=== PATIENT | male | born 1970 | race Caucasian/White ===

== ENCOUNTER 2019-08-09 08:32 | Day surgery (SDC) | payer MEDICARE, SELFPAY ==
[2019-08-08 13:16] VITALS: BMI 25.8
--- NOTE | 2019-08-09 09:21 | ANES.PREANES ---
Pre-Anesthetic Assessment Pre-Anesthetic Assessment: Height/Weight: Height 1.7 m Weight 74.843 kg Proposed Procedure: Operation Date: 08/09/19 10:00 Proposed Procedures p Colonoscopy(Not Applicable) - Kingston Lilly MD Social: Social History: Alcohol and Tobacco Exam: Pre-Anes Outpt Exam: alert, oriented x 3, clear to auscultation bilaterally and regular rate & rhythm Airway: Submandibular: WNL Cervical ROM: WNL MP: 1 Dentition: Other (poor) History/ROS: No significant history except as noted Pulmonary: Pulmonary: None reported CV/HEM: CV/HEM: None reported : : None reported Hepatic: Hepatic: None reported GI: GI: GERD and None reported Metabolic: Metabolic: Hyperlipidemia Musc/skel: Musc/skel: None reported Neuropsych: Neuropsych: Anxiety and Bipolar Anesthetic Plan: ASA status: III Anesthesia: Anesthesia Evaluation and MAC Risk of > 500 ml blood loss (7ml/kg in children): No PFSH Anesthesia PFSH: Medical History Bipolar disorder (Acute) Depression (Acute) Dyslipidemia (Acute) GERD (gastroesophageal reflux disease) (Acute) Hx MRSA infection (Acute) Inguinal hernia (Acute) OCD (obsessive compulsive disorder) (Acute) Schizophrenia (Acute) Surgical History Hx of circumcision (Acute) Hx of left inguinal hernia repair (Acute) Hx of vasectomy (Acute) Social History Smoking and tobacco status: former smoker Alcohol intake: current Alcohol intake frequency: few times a month Data Anesthesia Cardiac Studies: No Data to Display
[2019-08-09 09:52] VITALS: BP 108/75; PULSE 64; RESP 18; TEMP 36.6; O2SAT 98
[2019-08-09] MEDS: sodium chloride 0.9% 1,000 ML 30 ML (10:02)
[2019-08-09] MEDS: midazolam 1 mg/mL INJ 2 mL 2 MG (11:00)
[2019-08-09 11:01] VITALS: PULSE 62; O2SAT 98
--- NOTE | 2019-08-09 11:02 | PM.HPUD ---
H&P update H&P Update: DATE OF SURGERY/PROCEDURE: 08/09/19 DATE H&P PERFORMED: 07/11/19 H&P UPDATE INFORMATION: H&P completed within last 30 days and No changes to prior documentation PLANNED PROCEDURE: Operation Date: 08/09/19 10:00 Proposed Procedures p Colonoscopy(Not Applicable) - Kingston Lilly MD Full H&P Perinent History: Medical/Surgical History: Medical History (Updated 08/09/19 @ 09:22 by Kirk Pérez MD) Bipolar disorder (Acute) Depression (Acute) Dyslipidemia (Acute) GERD (gastroesophageal reflux disease) (Acute) Hx MRSA infection (Acute) Inguinal hernia (Acute) OCD (obsessive compulsive disorder) (Acute) Schizophrenia (Acute) Social History: Social History Smoking and tobacco status: former smoker Alcohol intake: current Alcohol intake frequency: few times a month
--- NOTE | 2019-08-09 12:09 | SUR.OPER ---
ink used and a clip placed at bx site in the transverse colon
[2019-08-09 12:24] VITALS: BP 103/71; PULSE 71; RESP 16; TEMP 36.5; O2SAT 100
--- NOTE | 2019-08-09 12:34 | ANE.PACU ---
 Inpatient post-anesthesia follow up: Airway intact: Yes Vital signs: Temperature 97.7 F Pulse Rate [Monito r] 71 Respiratory Rate 16 Blood Pressure [Le ft Arm] 103/71 Pulse Oximetry 100 Oxygen Delivery Me thod Room Air Oxygen Flow Rate Fraction of Inspir ed Oxygen Hydration adequate: Yes Nausea and vomiting: No Pain level: 2 Mental status: Baseline
[2019-08-09 12:40] VITALS: BP 128/83; PULSE 68; RESP 18; O2SAT 100
== END 2019-08-09 12:45 | disposition home or self-care (01) ==
PROVIDERS: Visit Provider Surgery
PROC: 0DJD8ZZ Inspection of Lower Intestinal Tract, Via Natural or Artificial Opening Endoscopic (ICD-10-PCS; CPT 45378; principal; 2019-08-09 10:00)
DX: Z12.11 Encounter for screening for malignant neoplasm of colon (principal); D12.4 Benign neoplasm of descending colon; D12.3 Benign neoplasm of transverse colon; K57.30 Diverticulosis of large intestine without perforation or abscess without bleeding; E78.5 Hyperlipidemia, unspecified; K21.9 Gastro-esophageal reflux disease without esophagitis; Z86.14 Personal history of Methicillin resistant Staphylococcus aureus infection; Z87.891 Personal history of nicotine dependence
CPT/HCPCS: 12345; 45385; 88305; 96365; J2250; J2704; J7030

== ENCOUNTER 2020-09-26 08:07 | Inpatient (IN) | payer MEDICARE, SELFPAY ==
[2020-09-26] VITALS (7 sets, daily range): BP systolic 121–184; BP diastolic 85–96; PULSE 44–106; RESP 16–20; TEMP 36.8–37.4; O2SAT 95–98; BMI 22.7
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
[2020-09-26 08:50] LABS: Basophils % 0.5 %; Eosinophils # 0.2 10^3/uL (0.0-0.8); Eosinophils % 1.9 %; Hematocrit 47.5 % (42.0-52.0); Hemoglobin 16.2 g/dL (11.7-16.6); Lymphocytes # 2.3 10^3/uL (0.8-4.8); Lymphocytes % 27.6 %; Mean Corpuscular HGB Conc 34.1 g/dL (30.0-36.0); Mean Corpuscular Hemoglobin 29.8 pg (28.0-34.0); Mean Corpuscular Volume 87.5 fL (80-94); Mean Platelet Volume 10.4 fL (7.4-10.4); Monocytes # 0.8 10^3/uL (0.2-0.9); Monocytes % 10.1 %; Neutrophils # 4.95 10^3/uL (1.8-7.7); Neutrophils % 59.7 %; Nucleated Red Blood Cells % 0 %; Platelet Count 223 10^3/cmm (130-400); Red Blood Count 5.43 10^6/uL (4.1-5.3); Red Cell Distribution Width 12.4 % (12.1-15.1); White Blood Count 8.3 10^3/uL (4.0-10.0)
[2020-09-26 09:08] LABS: Alanine Aminotransferase 17 U/L (0-41); Albumin Level 4.1 g/dL (3.5-5.2); Alkaline Phosphatase 72 IU/L (40-130); Anion Gap 17.7 (5-19); Aspartate Amino Transferase 14 U/L (0-40); Blood Urea Nitrogen 18 mg/dL (6-20); Calcium 9.6 mg/dL (8.5-10.5); Carbon Dioxide 23 mmol/L (22-29); Chloride 105 mmol/L (98-107); Globulin 2.5 g/dL (1.3-4.6); Glomerular Filtration Rate 101.9 mL/min (90-130); Glucose 136 mg/dL (65-115); Osmolality Calculated 298 mOsm/kg (285-295); Potassium 3.7 mmol/L (3.5-5.1); Sodium 142 mmol/L (136-145); Total Bilirubin 0.2 mg/dL (0.15-1.2); Total Protein 6.6 g/dL (6.6-8.7)
[2020-09-26 09:10] LABS: Acetaminophen < 5.0 ug/mL (10-30); Alcohol Level < 10 mg/dL (0-10); Salicylate < 0.3 mg/dL (3-10)
[2020-09-26 09:18] LABS: Amphetamines Screen Urine Negative (Negative); Barbiturates Screen Urine Negative (Negative); Benzodiazepines Screen Urine Negative (Negative); Cocaine Screen Urine Negative (Negative); Opiate Screen Urine Negative (Negative); PCP Screen Urine Negative (Negative); THC Screen Urine Negative (Negative)
--- NOTE | 2020-09-26 11:14 | PC.NURSE ---
Wasted 2mg Ativan and 20mg Geodon with Tyron Eddy RN as Dr Abdul gave verbal order to cancel medication administration.
[2020-09-26] MEDS: OLANZapine 10 mg TABLET PO (12:39)
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
[2020-09-26] MEDS: hyDROXYzine 25 mg Capsule 50 MG PO (14:57)
--- NOTE | 2020-09-26 15:47 | PC.NURSE ---
Patient refused the 1530 dose of Klonipin and Prozac. Educated patient on the uses of these medications and encouraged patient to take them as ordered and patient continued to refuse. Will continue to closely monitor patient. POOL, JAVAD
[2020-09-26] MEDS: CLONazepam 0.5 mg Tablet PO ×2 (15:52→20:43)
[2020-09-26] MEDS: divalproex ER 500 mg Tablet (24H) PO (20:43)
[2020-09-26] MEDS: OLANZapine 10 mg TABLET 20 MG PO (20:43)
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
[2020-09-27 06:00] VITALS: RESP 18
--- NOTE | 2020-09-27 06:09 | PC.NURSE ---
Behavior/Slept Pt was cooperative with staff, no issues giving medication, no PRN's given, patient slept without waking throughout the night.
[2020-09-27] MEDS: CLONazepam 0.5 mg Tablet PO ×3 (07:52→20:38)
[2020-09-27] MEDS: fluoxetine 10 mg Capsule PO (07:52)
[2020-09-27] MEDS: OLANZapine 10 mg TABLET PO (07:53)
[2020-09-27 13:23] VITALS: BP 98/62; PULSE 82; RESP 18; TEMP 36.3
--- NOTE | 2020-09-27 14:31 | P.PN_ITS ---
Subjective NPU Subjective: Interval history: Reports significant improvement in paranoia, denies any delusions Denies any auditory or visual hallucinations Denies any mood symptoms, denies any depressed symptoms, denies any irritability or anger Denies any suicidal ideation or thoughts about self-harm Reports being compliant with medication, denies any medication side effects Per staff report, patient does not appear to be attending to any internal stimuli Mental Status Exam MSE Comments: Appropriately groomed and dressed, calm, cooperative, interactive Psychomotor activity is neither increased nor decreased, no agitation Speech is normal rate and volume, spontaneous, clear reticulation, not pressured I feel pretty good, somewhat constricted but occasionally smiles, not labile Alert and oriented to person, place, time but not situation Memory and concentration are fair Thought process, linear, no flight of ideas, no looseness of association Thought content, no stated delusions, no hallucinations, no suicidal or homicidal ideation Insight and judgment appear to be limited Vitals/I&O/Wt Last Vital Signs Temp 97.3 F L 09/27/20 13:23 Pulse 82 09/27/20 13:23 Resp 18 09/27/20 13:23 BP 98/62 09/27/20 13:23 Pulse Ox 97 09/26/20 20:07 Weight last 48 hrs Weight 65.771 kg Data NPU : 09/26/20 08:40 09/26/20 08:40 A&P Assessment and plan (1) Paranoid schizophrenia: Status: Acute Additional A&P Information Continued improvement, denies any interval psychotic symptoms, no paranoid behaviors, does not appear to be attending to any internal stimuli CONTINUE current medication, continue to monitor Involuntary Hold Information 96 Hour Hold: 96 Hour Involuntary Admission: Yes 96 Hour Hold Ending Date: 10/02/20 96 Hour Hold Ending Time: 10:15 Attestations NPU Medical Necessity Statement*: Continues to require psychiatric hospitalization for medication stabilization Coding Level of Care Code Acute Leg Assembler for Alta Pressley Diagnoses Paranoid schizophrenia F20.0
[2020-09-27] MEDS: hyDROXYzine 25 mg Capsule 50 MG PO (14:50)
--- NOTE | 2020-09-27 14:51 | PC.NURSE ---
Patient at the desk requesting vistaril or Klonipin . Patient asked what he needed it for and patient states that he is anxious. And Vistaril was given as ordered and patient was educated on uses and side effects. POOL, JAVAD
--- NOTE | 2020-09-27 19:11 | P.PN_ITS ---
NPU Therapy Progress Note Therapy Progress Note Date: 09/27/20 Time In: 18:00 Time Out: 18:15 Symptoms Reported: none reported Mood: stable, appropriate, open to conversation Progress Note: FLY WINDER approached Kd in his room and he is agreeable to speak with FLY WINDER. Kd initially is confused about FLY WINDER title as a therapist and asks appropriate questions about schooling and degree information. He is surprised about how many years of schooling FLY WINDER has. Kd explains that he has long history of Schizophrenia diagnosis and has been on different medications at times, some being more effective than others. He describes his previous medication reaching a point where it no longer controlled his symptoms. He is interested in outpatient treatment and believes he sees a medication provider in the [facility] office. Intervention: FLY WINDER provided reflective listening building rapport. FLY WINDER confirmed with nursing staff Kd is a patient of [facility]. Kd then expresses interest in therapy tx and FLY WINDER offered to put in a referral. Kd accepts this. He provided updated contact information and thanked FLY WINDER for her help. FLY WINDER also educated on [facility] accessibility and provided a [facility] [place] pamphlet with this FLY WINDER contact information. Reported Goals Before Discharge: none reported
--- NOTE | 2020-09-27 19:11 | PM.NPTHER ---
NPU Therapy Progress Note Therapy Progress Note Date: 09/27/20 Time In: 18:00 Time Out: 18:15 Symptoms Reported: none reported Mood: stable, appropriate, open to conversation Progress Note: PARTNER CCO approached Kd in his room and he is agreeable to speak with PARTNER CCO. Kd initially is confused about PARTNER CCO title as a therapist and asks appropriate questions about schooling and degree information. He is surprised about how many years of schooling PARTNER CCO has. Kd explains that he has long history of Schizophrenia diagnosis and has been on different medications at times, some being more effective than others. He describes his previous medication reaching a point where it no longer controlled his symptoms. He is interested in outpatient treatment and believes he sees a medication provider in the [facility] office. Intervention: PARTNER CCO provided reflective listening building rapport. PARTNER CCO confirmed with nursing staff Kd is a patient of [facility]. Kd then expresses interest in therapy tx and PARTNER CCO offered to put in a referral. Kd accepts this. He provided updated contact information and thanked PARTNER CCO for her help. PARTNER CCO also educated on [facility] accessibility and provided a [facility] pamphlet with this PARTNER CCO contact information. Reported Goals Before Discharge: none reported
[2020-09-27] MEDS: divalproex ER 500 mg Tablet (24H) PO (20:39)
[2020-09-27] MEDS: OLANZapine 10 mg TABLET 20 MG PO (20:39)
[2020-09-27 22:00] VITALS: BP 153/77; PULSE 100; RESP 16; TEMP 36.9; O2SAT 97
--- NOTE | 2020-09-27 22:53 | PC.NURSE ---
PM ASSESSMENT @1900-PT DENIES SI/HI, DENIES AH/VH, PT DENIES PAIN. PT IS COOPERATIVE WITH STAFF, SPOKE TO NURSE AT LENGTH ABOUT VARIOUS TOPICS, ASKED/ANSWERED QUESTIONS APPROPRIATELY, VERY PLEASANT. HEART/LUNG SOUNDS ARE WNL, B/P IS ELEVATED 153/77, HR AT REST IS 100. PT REQUESTED PAPER TO WRITE AND DRAW IN THE DAYROOM. @2030 PT CAME TO THE NURSES STATION TO CONTINUE HIS DRAWING, HE BEGAN TO RIP THE PAPERS UP, PLACE THEM ON THE BENCH, THIS BEHAVIOR SEEMS THERAPEUTIC FOR HIM AT THIS TIME. HE REQUESTED ANOTHER SNACK, TOOK HIS MEDICATIONS WITHOUT INCIDENT, AND CONTINUES TO DO THIS AT THIS TIME. WILL CONTINUE TO OBSERVE PT BEHAVIOR FOR ANY CHANGES.
[2020-09-28 05:50] VITALS: BP 148/68; PULSE 98; RESP 16; TEMP 36.9; O2SAT 97
[2020-09-28] MEDS: fluoxetine 10 mg Capsule PO (08:22)
[2020-09-28] MEDS: OLANZapine 10 mg TABLET PO (08:22)
[2020-09-28] MEDS: CLONazepam 0.5 mg Tablet PO (08:22)
--- NOTE | 2020-09-28 09:15 | P.DS_ITS ---
Diagnoses at Discharge Discharge Diagnosis (1) Paranoid schizophrenia: Status: Acute Reason for Visit Reason for Visit: [facility] Hospital Course Hospital Course 50-year-old male with reported history of bipolar disorder, paranoid schizophrenia with recent release from prison for assault related to his paranoid delusions presented to the emergency department with worsening paranoid delusions and concerns of harming someone secondary to these delusions. Patient was restarted on home medication of olanzapine but was titrated up to olanzapine 10 mg daily and 20 mg at bedtime with fluoxetine 10 mg daily. Clonazepam 0.5 mg twice daily was started secondary to restlessness from his ongoing delusions and appearance of attending to internal stimuli and being internally preoccupied at the time of his admission. Patient reported significant improvement with diminished paranoia reporting no paranoid delusions and denying any thoughts about harming others. Particularly, patient was no longer making any concerning statements about wanting to hurt any police officers that he felt like were out to get him. He denied any mood symptoms, denied any depressed symptoms, denied any suicidal ideation. Patient also reported significantly improved sleep and appetite and tolerated this medication changes well with no reports of any medication side effects. Patient was not suicidal and was not psychotic at the time of discharge and did not appear to pose an imminent threat of harm to self or others. Low to moderate risk of harm to self or others based on no current psychotic symptoms, no current suicidal or homicidal ideation although patient's risk may be elevated if he is noncompliant with his medication or medication management follow-up or is using any substances which may lead to unexpected, impulsive behavior. Risk mitigation included psychiatric hospitalization for observation, medication stabilization as well as coordinating for safe discharge with psychiatric follow-up. Patient was able to communicate his understanding of the need to be compliant with his medication and medication management follow-up as well as the need to be abstinent of any substances or alcohol while on psychiatric medication in order to further mitigate his risk of harm to self and others. Involuntary Hold Information 96 Hour Hold: 96 Hour Involuntary Admission: Yes 96 Hour Hold Ending Date: 10/02/20 96 Hour Hold Ending Time: 10:15 Mental Status Exam MSE Comments: Patient walking around on the unit, polite, calm, cooperative, appropriately groomed and dressed Psychomotor activity is neither increased nor decreased, no agitation Speech is normal rate and volume, spontaneous, clear articulation, not pressured I feel good, somewhat constricted but occasionally smiles, not labile Alert and oriented to person, place, time but not situation Memory and concentration are fair Thought process, linear, no flight of ideas, no looseness of association Thought content, no stated delusions, no hallucinations, no suicidal or homicidal ideation Insight and judgment appear to be limited Discharge Data Vitals: Last Vital Signs Temp 98.4 F 09/28/20 05:50 Pulse 98 09/28/20 05:50 Resp 16 09/28/20 05:50 BP 148/68 09/28/20 05:50 Pulse Ox 97 09/28/20 05:50 Discharge Plan Discharge Patient Disposition: Home Condition: Stable Prescriptions: New olanzapine 10 mg Tablet 10 mg PO DAILY Qty: 30 RF: 0 olanzapine 10 mg Tablet 20 mg PO BEDTIME Qty: 30 RF: 0 divalproex 500 mg Tablet Extended Release 24 Hr 500 mg PO BEDTIME Qty: 30 RF: 0 fluoxetine 10 mg Capsule 10 mg PO DAILY Qty: 30 RF: 0 Discontinued olanzapine 20 mg tablet 20 mg PO DAILY RF: 0 Discharge Orders: Discharge Order (Routine); Ordered 09/28/20 Ordered By: Sami Lopez Referrals: Bertha Beard MD [[place]] - 11/08/20 1:30 pm (Psychiatric evaluation. First appointment will be at [facility], after that you can be seen at the [facility].) Ashlie Travis, [employer] [Primary Care Provider] - Discharge Diet: Regular Discharge Activity: Resume usual activity Patient Instructions: Generalized Anxiety Disorder (DC) Discharge Attestations NPU Time Spent in Discharge Care*: greater than 30 min Status at Discharge: Cognitive status at discharge: cognitively intact , Behavioral status at discharge: cooperative , Functional status at discharge: independent ambulation Overall status at discharge: patient is back to baseline Coding Level of Care Code Acute [employer] for [place] Fwd Diagnoses Paranoid schizophrenia F20.0
[2020-09-28 09:17] VITALS: BP 148/68; PULSE 98; RESP 16; TEMP 36.9; O2SAT 97
== END 2020-09-28 09:22 | disposition home or self-care (01) | DRG 885 ==
LOC: ER 10:20 → NP 11:03
PROVIDERS: Physician Assistant; Admitting Provider Psychiatry & Neurology Psychiatry; Emergency Provider Family Medicine; PCP Nurse Practitioner Family; Visit Provider Psychiatry & Neurology Psychiatry
DX: F20.0 Paranoid schizophrenia (principal); F32.9 Major depressive disorder, single episode, unspecified; E78.5 Hyperlipidemia, unspecified; K21.9 Gastro-esophageal reflux disease without esophagitis; Z86.14 Personal history of Methicillin resistant Staphylococcus aureus infection; F42.9 Obsessive-compulsive disorder, unspecified; Z87.891 Personal history of nicotine dependence
CPT/HCPCS: 80053; 80306; 80307; 85025; 99285

== ENCOUNTER → 2020-11-08 13:27 | Outpatient (BNVA) | payer MEDICARE, SELFPAY | PROVIDERS: PCP Nurse Practitioner Family; Visit Provider Psychiatry & Neurology Psychiatry | DX: F20.0 Paranoid schizophrenia (principal); F12.10 Cannabis abuse, uncomplicated | CPT/HCPCS: 90792 ==